=== PATIENT | male | born 1990 | race Hispanic/Latino ===

== ENCOUNTER → 2018-04-04 | Day surgery (SDC) | payer OTHER ==
[~2018-04-04] MED LIST: ACETAMINOPHEN 1000 MG/100 ML IV ONE; AMLODIPINE BESY10 MG PO; BACITRACIN 50,000 UNIT VIAL ONE; CEFAZOLIN SOD 1 GM VIAL ONE; EPHEDRINE SULFATE INJ 50 MG/10 ML SYR ONE; FENTANYL CITRATE/PF 100MCG/2 ML INJ ONE; KETAMINE HCL INJ 50 MG/ML 10 ML VIAL ONE; LIDOCAINE 2%/ EPINEPHRINE 20ML MDV ONE; MIDAZOLAM HCL 2 MG/2 ML VIAL ONE; MUPIROCIN 2% OINT 22 GM TUBE ONE; ONDANSETRON HCL INJ 2 MG/ML VIAL ONE; PROPOFOL IV EMULSION 10 MG/ML 20 ML VIAL ONE; ROPIVACAINE 0.5% 5 MG/ML 30 ML SDV ONE; SEVOFLURANE INHAL SOLN 250 ML PEN BTL ONE
--- NOTE | 2018-04-04 10:58 | Operative Report ---
DATE OF PROCEDURE: April 04, 2018 FACILITY MAINTENANCE SUPERVISOR: Mauricio Guerra PA-C The patient was brought to the operating room for induction of anesthesia. Throughout this case, my PA's assistance was necessary for retraction of soft tissue and positioning of the extremity. This allows for efficient and technically successful execution of the operation and is considered medically necessary. PREOPERATIVE DIAGNOSIS: Left knee anterior cruciate ligament tear, lateral meniscal tear. POSTOPERATIVE DIAGNOSIS: Left knee anterior cruciate ligament tear, lateral meniscal tear. PROCEDURE: Left knee arthroscopy, anterior cruciate ligament reconstruction and partial lateral meniscectomy. INDICATIONS: The patient is a 27-year-old active male who injured his left knee playing soccer a few years back. He was unable to seek medical care at that time. He presented and now wishes to have surgical reconstruction of his anterior cruciate ligament tear. He also has a lateral meniscal tear. The findings and options have been discussed. Long-term expectations have been explained. He states he understands and wishes to proceed. DESCRIPTION OF PROCEDURE: The patient was brought to the operating room and placed under general anesthetic. He received prophylactic antibiotics and a regional block in the holding area. His left lower extremity was examined under anesthesia and noted have a positive pivot shift but good collateral stability. The lower extremity was prepped and draped in a sterile manner. A preoperative time out was performed. The extremity had been exsanguinated, and a proximal tourniquet was inflated to 300 mmHg. Arthroscopic portal incisions were made. The knee was insufflated with sterile saline and systematically inspected. The patellofemoral groove and medial compartment were unremarkable. 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 There was a complex tear of the lateral meniscus with some evidence of it being subacute. The unstable margins of the meniscus were debrided back to a stable margin using a combination of biting forceps and a meniscal shaver. Notchplasty was then performed. What was left of the ACL was gently debrided. An extra-articular vector guide was used to place a guide pin from the proximal medial tibia into the footprint of the previous ACL. The positioning of this pin was also referenced off of the posterior border of the anterior horn of the lateral meniscus. A semitendinosus allograft had been prepared at the back table. This had an 11 mm diameter. An 11-mm reamer was placed over the guide pin. A 6-mm wzyb-jzz-woc guide was then used to place a femoral guide pin. This was brought out the anterior cortex and soft tissue. This was over-reamed with an 11-mm acorn reamer to a distance of about 35 mm. The 4.5-mm Endo button drill was then placed. The length of the Endo button tunnel required a 30-mm Endo button. This was attached to the graft, and the graft was passed. The Endo button was deployed over the anterior femoral cortex. The knee was cycled with tension applied to the graft. An 11 mm x 25 mm bioabsorbable interference screw was placed into the tibial tunnel. Excellent fixation was obtained. The graft protruding from the tibial tunnel was excised. The knee was reinspected arthroscopically. The graft was under appropriate tension. The arthroscopic instruments were removed, and the portal incisions were closed with nylon stitches. A sterile bandage and a [place] brace were applied. The patient was extubated and transported to the recovery room in stable condition. Blood loss was minimal, and all needle and sponge counts were correct. Job#: [id number]
== END | disposition home or self-care (01) ==
LOC: OR 07:01
PROVIDERS: ATTEND Specialist
DX: M23.612 Other spontaneous disruption of anterior cruciate ligament of left knee (principal); S83.262D Peripheral tear of lateral meniscus, current injury, left knee, subsequent encounter; I10 Essential (primary) hypertension; X50.1XXA Overexertion from prolonged static or awkward postures, initial encounter; Y93.66 Activity, soccer; Y99.8 Other external cause status; Z01.810 Encounter for preprocedural cardiovascular examination; Z68.31 Body mass index [BMI] 31.0-31.9, adult; Z87.891 Personal history of nicotine dependence
CPT/HCPCS: 27407; 29881; 93005; C1713 ×2; J0690; J2001; J2250; J2405; J2795